=== PATIENT | male | born 1945 | race Caucasian/White ===

== ENCOUNTER → 2022-02-19 10:16 | Outpatient (CLI) | payer MEDICARE, OTHER, SELFPAY ==
[2022-02-19 11:12] LABS: COVID19 -Nasal RAPID Negative (Negative)
== END ==
PROVIDERS: PCP Nurse Practitioner Family; Referring Provider Orthopaedic Surgery Orthopaedic Surgery of the Spine; Visit Provider Orthopaedic Surgery Orthopaedic Surgery of the Spine
DX: Z20.822 Contact with and (suspected) exposure to COVID-19 (principal); Z11.59 Encounter for screening for other viral diseases
CPT/HCPCS: 87635; C9803

== ENCOUNTER 2022-02-21 06:05 | Inpatient (IN) | payer MEDICARE, OTHER, SELFPAY ==
[2022-02-07 08:05] VITALS: BMI 29.2
[2022-02-21] VITALS (13 sets, daily range): BP systolic 101–146; BP diastolic 57–76; PULSE 85–106; RESP 13–20; TEMP 36.3–36.6; O2SAT 92–98; BMI 29.2
--- NOTE | 2022-02-21 | DI.RAD.S_ITS ---
PROCEDURE: XR LUMBAR SPINE 2-3V INDICATIONS: L4-5 L5-S1 TLIF TECHNIQUE: 2 spot fluoroscopic intraoperative images of the lower lumbar spine were acquired. COMPARISON: [facility], CT, CT LUMBAR SPINE WITHOUT CONTRAST, 02/14/2022, 7:21. FINDINGS: Spot fluoroscopic intraoperative images demonstrate posterior fusion changes at the L4 through S1 levels with pedicle screws, interbody rods, and disc spacers. Left sacroiliac fixation hardware is partially imaged. IMPRESSION: Postsurgical changes from posterior fusion at L4 through S1. Dictated by: Long Johnson M.D. on 02/21/2022 at 13:06 Approved by: Long Johnson M.D. on 02/21/2022 at 13:07
[2022-02-21] MEDS: LACTATED RINGERS 1,000 ML 100 ML IV ×2 (07:17→09:50)
--- NOTE | 2022-02-21 07:42 | PM.PREOP ---
Pre-operative Note COVID-19 COVID-19 status: Negative Result date/Date tested (Pos, Neg/Pending): 02/20/22 Criteria for continued procedure: Expected advancement of disease process, Possibility delay results in more complex future surgery or treatment, Increased loss of function, Continuing or worsening of significant or severe pain, Deterioration of the patient's condition or overall health and Delay expected to result in less-positive ultimate med/surg outcome Interval Note History & Physical reviewed/Exam performed by Physician: Yes Changes to H&P: No H&P completed within 30 days and has changed as indicated here:: HISTORY ITEM ONSET Anesthesia No complications, reactions Diverticulosis Enlarged prostate Fusion of joint Sciatic joint fusion left Hearing impaired Bilateral hearing aids HTN (hypertension) Kidney stone Passed without surgical intervention Rosacea SCC (squamous cell carcinoma) Removed from forehead Spinal stenosis of lumbar region HISTORY ITEM ONSET H/O vasectomy History of arthroscopy of right shoulder Bone spurs Hx of appendectomy Hx of arthroscopy of left knee Meniscus repair Hx of bilateral cataract extraction Hx of hernia repair Hx of repair of left rotator cuff Hx of tonsillectomy
[2022-02-21] MEDS: CEFAZOLIN 2 GM/20 ML SYRINGE IV ×2 (08:11→15:39)
--- NOTE | 2022-02-21 08:39 | SUR.OPER ---
Addendum entered by Marybeth Low R.N. 02/21/22 09:04: Patients glasses placed in patient labeled glass case and placed into his belongings bag in pre-op area. Patient states he left his hearing aids at home and ears better out of his right ear. Original Note: Prone on spine table, head in foam head support, padded chest and pelvic supports, gel pad at knees, lower legs supported by pillows; nipples, genitalia and toes free of pressure, arms secured on foam padded arm boards at <90 degrees abduction. Tape over blanket at thigh secured to table. Gel pad placed between heels.
[2022-02-21] MEDS: BUPIVACAINE 0.5% W/ EPI (PF) 30 ML VIAL INJ (08:45)
[2022-02-21] MEDS: BUPIVACAINE LIPOSOME 266 MG/20 ML VIAL INJ (11:10)
--- NOTE | 2022-02-21 11:17 | SUR.OPER ---
At 1110, Dr. Hebert aware urine in urinary catheter tubing/bag slightly cloudy. There was clear yellow urine with insertion.
--- NOTE | 2022-02-21 11:40 | PM.OP.1 ---
Operative Date/Time/Diagnoses Date of procedure: 02/21/22 Time of procedure: 07:45 Pre-op diagnosis: 1. L4-5, L5-S1 spinal stenosis 2. Lumbar spondylosis with radiculopathy Post-op diagnosis: same Procedure & Clinicians Procedure: 1. L4-5, L5-S1 Postero-lateral and posterior interbody fusion 2. L4-5, L5-S1 interbody cage placement. 3. L4-5, L5-S1 decompressive laminectomy with bilateral facetecomies 4. L4-5, L5-S1 Posterior segmental instrumentation 5. [place] of bone marrow from iliac crest 6. Utilization of microsurgical technique and operating microscope 7. Utilization of Robotic navigation Same procedure as scheduled: Yes Indications: Patient has been having chronic back pain and worsening lumbar radiculopathy. Patient failed multiple conservative management with worsening pain weakness and numbness in her lower extremity. Patient has been having difficulty performing activity of daily living. After discussing risks benefits of treatment options, patient elected proceed with surgery. Surgeon: Surjit Hebert Talent Program Manager: Thomas Cleaning Click Yes if Unassisted: No Anesthesia Type: General Operative Notes Closure Type: primary Specimen(s): none sent Prosthetic devices, grafts, tissues, transplants, or devices: Globus CREO MIS screws, Rise cages Applied: catheter Estimated Blood Loss (mL): 100 Blood products transfused: none Procedure in detail: Patient was seen in the preoperative area. Risks and benefits of the surgery was discussed with the patient. Informed consent was obtained from the patient and placed in the chart. Surgical site was marked. Patient was taken to the operative room. General anesthesia was administered. Prophylactic antibiotic was given to the patient less than 30 min before the incision was made. Patient was placed into a prone position on the Jesus table. Patient's back was then prepped and draped in the sterile fashion. Time-out was performed at this time. After patient was prepped and draped, patient's PSIS was palpated and marked bilaterally. Small 1 cm incision was made over the PSIS for placement of the reference probes. Two trocar was placed into the PSIS 1 on each side. The reference probe was attached to the trocar of the reference apparatus. At this time the C-arm imaging was used to confirm AP and lateral of L4-L5, L5-S1 vertebrae and merged the C-arm imaging using the Eventdoo robotic navigation system with the CT of the lumbar spine. After successful merging was completed and confirmed, skin marker was used to hernesto out the skin incision using the Eventdoo robotic arm. Bilateral incision was made at this time. Pre templated trajectory was used and guided using the Eventdoo robotic navigation system for bilateral L4, L5, S1 pedicle screw placement. This was done by using the robotic arm to guide the high-speed bur to make a cortical entry point. Next a drill was placed also using the robotic arm and guided using the navigation system drilling partially through bilateral L4, L5 and S1 pedicles. Next L4, L5, S1 pedicle screws it was pre templated and measured was placed onto the power helper/driver and inserted into the pedicles bilaterally. After all 6 screws were placed C-arm imaging was taken of both AP and lateral to confirm the placement. Excellent placement of the screws were confirmed and a matched precisely with the pre planned screw placement using the navigation system. MARs retractor was inserted using [employer] Kidney Stone Managementivation guidence. Globus MARS retractors was placed inside the incision and docked onto the L4 and L5 lamina. Using microsurgical technique and operating microscope, a L4, L5 laminectomy and L4-5, L5-S1 facetectomy was performed using a Kerrison rongeur. Patient was found have severe lateral recess and neural foramen stenosis which was fully decompressed after the laminectomy facetectomy. More than 75% of the facets were removed during the process of decompression rendering L4-5, L5-S1 level grossly unstable and required a fusion procedure at the same time. The disc space at L4-5, L5-S1 was identified, and a total diskectomy was performed at L4-5, L5-S1 level. The endplates were decorticated using a rasp and shaver. The total diskectomy and decortication was performed at L4-5, L5-S1 level in order to to accomplish a L4-5, L5-S1 fusion. The local bone from the laminectomy and facetectomy was saved for local bone grafting. After the total diskectomy and decortication was completed, Trifecta bone graft material was combined with local bone that was harvested earlier. At this time, a separate skin is incision was made over the iliac crest. A Jamshidi needle was inserted into the iliac crest through a separate skin incision. 5 cc of bone marrow aspiration was obtained through the separate skin incision using a Jamshidi needle from the iliac crest. The bone marrow aspiration was combined with local bone and the Trifecta bone grafting material. The bone grafting material was placed into the L4-5, L5-S1 interbody space along with a expandable cage. The cage was expanded to its maximum height using the torque limiting screwdriver. The disc preparation as well as the cage insertion were also performed under navigation guidance. After the cage was placed, AP and lateral C-arm imaging was taken to confirm placement of the cage and excellent position was confirmed. Globus MARS retractor was inserted and docked onto the L4-5, L5-S1 posterolateral gutter on the right side. Using the power drill, posterior-lateral decortication was performed at L4-5, L5-S1 level until bleeding cortical bone was identified. The remaining bone grafting material was placed into the L4-5, L5-S1 posterior lateral gutter he order to accomplish posterolateral fusion at the L4-5, L5-S1 level. At this time the tulips were attached to the L4, L5, S1 pedicle screw shanks. After measuring the length of the rods, they were inserted into the tulips of the pedicle screws and locked in place using locking caps and torque limiting screwdriver bilaterally. Total 6 caps and 2 titanium rods was used in order to complete the posterior instrumentation construct. After all the hardware was placed, and confirmed with AP and lateral C-arm imaging, the wound was then irrigated with sterile normal saline and packed with Ray-Jose R gauze for 3 min to accomplish hemostasis. After the gauze was removed the deep fascia was closed with #1 Vicryl suture. The subcutaneous layer was closed with 2-0 Vicryl. The skin was closed with skin karri. Patient tolerated the procedure well. There were no complications. Neuro monitoring system was used to monitor patient's neurologic status throughout entire procedure. There was no disturbance of the neural monitoring signals throughout the case. Complications: none Post-operative Condition: stable Disposition: PACU Plan for aftercare: Admit to inpatient hospital
[2022-02-21] MEDS: OXYCODONE/ACETAMINOPHEN 5/325 TABLET 1 TAB PO ×2 (11:44→12:16)
--- NOTE | 2022-02-21 12:08 | SUR.PHASEI ---
Urine showed to nicanor Guzman. No order given. Patient stable, awake, oriented, pleasant, tolerating PO intake well.
[2022-02-21] MEDS: SODIUM CHLORIDE 0.9% 1,000 ML 100 ML IV (12:45)
--- NOTE | 2022-02-21 14:10 | PT.IIE ---
Current Diagnoses Other spondylosis with radiculopathy, lumbar region (02/21/22) Spinal stenosis, lumbar region without neurogenic claudication (02/21/22) Surgery Performed Operation Date: 02/21/22 07:45 Actual Procedures p L4-5, L5-S1 TLIF w. posterior instrumentation- Robot - Surjit Hebert MD Surgical History (Last Reviewed 02/21/22 @ 06:53 by Dorothea Russ, RN) H/O vasectomy History of arthroscopy of right shoulder Hx of appendectomy Hx of arthroscopy of left knee Hx of bilateral cataract extraction Hx of hernia repair Hx of repair of left rotator cuff Hx of tonsillectomy Medical History (Last Reviewed 02/21/22 @ 06:53 by Dorothea Russ, RN) Anesthesia Diverticulosis Enlarged prostate Fusion of joint Hearing impaired HTN (hypertension) Kidney stone Rosacea SCC (squamous cell carcinoma) Spinal stenosis of lumbar region Physical Therapy Inpatient Evaluation/Re-Eval M1 PT/OT-IP Prior Functional Status Start: 02/21/22 15:35 Freq: NEEDED Status: Active Protocol: Document 02/21/22 14:10 AB (Rec: 02/21/22 15:56 AB [email or web address]) Medical Review Prior Functional Status Medical History Reviewed Yes Communication able to make needs known Mobility and Gait pt stated that he is independent with all mobilities and ambulation without Ad but occasionally uses a SPC for outdoor mobility Social History Household Members spouse Living Arrangements House Number of Floors (Floors) Two Floors Number of Stairs To Enter/Railing? 4 steps with L rail ascending to get into the house has 3 steps L rail to get to bedroom level Home Environment High Toilet,Walk in Shower, Built-In Shower Seat Home Equipment Front Wheel Walker,Straight Cane Additional Social History Comment pt has R side rail on the bed M2 PT-IP Current Condition Start: 02/21/22 15:35 Freq: NEEDED Status: Active Protocol: Document 02/21/22 14:10 AB (Rec: 02/21/22 15:56 AB [email or web address]) Physical Therapy Current Condition Current Condition Evaluation Date 02/21/22 Treatment Diagnosis s/p L4-5, L5S1 TLIF; difficulty in walking Onset Date 02/21/22 M3 PT-IP Subjective Start: 02/21/22 15:35 Freq: NEEDED Status: Active Protocol: Document 02/21/22 14:10 AB (Rec: 02/21/22 15:56 AB [email or web address]) Subjective Physical Therapy Visit Type Type Initial Evaluation Visit Start Time 14:10 Visit Stop Time 14:51 Total Visit Minutes 41 Number of REEL MAN Visits 0 Physical Therapy Visit Comments Patient Comments agreeable to do PT M4 PT-IP Mobility and Gait Start: 02/21/22 15:35 Freq: NEEDED Status: Active Protocol: Document 02/21/22 14:10 AB (Rec: 02/21/22 15:56 AB [email or web address]) PT-Bed Mobility Assessment Rolling Type of Rolling Log Rolling Level of Assist Minimal Assistance Supine to Sit Supine to Sit Minimal Assistance Sit to Supine Sit to Supine Minimal Assistance Scooting Scooting to Edge of Bed Standby Assistance PT-Transfer Assessment Sit to and From Stand Sit to and from Stand Contact Guard Assistance Equipment Transfer Assistive Device Gait Belt,Front Wheeled Walker Orthotic/Prosthetic Devices or Brace: No Transfers Transfer Destination Chair Transfer Technique ambulated Transfer Ability Level of Assist Contact Guard Assistance,1 Person Assistance,Use of Upper Extremities Comments Mobility Comments pt supine in bed. spouse in room with pt. educated pt and spouse regarding back precautions and log roll bed mobility. BP in supine 128/69 . completed log roll supine to sit min A and max cues. able to sit on EOB SBA. completed sit to stand CGA and ambulate din room using FWW CGA ~ 60 ft . pt requested to sit up on chair. positioned on chair. call light and table placed within reach. caregiver training set up at 9am tomorrow with spouse Gait Assessment Gait Gait Assistance Required: Contact Guard Assist Distance (Feet) 60 Able to Maintain Weight Bearing Status Yes During Gait Assistive Devices Assistive Device Gait Belt,Front Wheeled Walker Orthotic/Prosthetic Devices or Brace: No Gait Deviations General Gait Pattern Decreased Stride Length, Decreased Feet Clearance Factors Limiting Gait Function Factors Limiting Gait Function Decreased Activity Tolerance, Decreased Strength,Limited Range of Motion,Pain,Poor Balance PT-Balance Assessment Sitting Balance and Reactions Static Sitting Balance Ability Normal Dynamic Sitting Balance Ability Good Standing Balance and Reactions Static Standing Balance Ability Fair Dynamic Standing Balance Ability Fair Device Used FWW M5 PT-IP Objective Assessments Start: 02/21/22 15:35 Freq: NEEDED Status: Active Protocol: Document 02/21/22 14:10 AB (Rec: 02/21/22 15:56 AB [email or web address]) Orientation Orientation/Cognition Level of Alertness Alert Orientation Name,Place,Situation Language Function Ability No Deficits Noted Safety Awareness Decreased Safety Awareness Memory Description Short Term Impaired Gross Range of Motion Lower Extremity ROM Assessment Within Functional Limits Strength Lower Extremity Strength Hip 4-/5 Knee 4-/5 Sensation Assessment Sensation Gross Sensation WNL Muscle Tone Muscle Tone WNL Yes M6 PT-IP Treatment Start: 02/21/22 15:35 Freq: NEEDED Status: Active Protocol: Document 02/21/22 14:10 AB (Rec: 02/21/22 15:56 [email or web address]) Physical Therapy Treatment Education Education Provided Precautions,Weight Bearing Status,Post-Op Packet,Safety M7 PT-IP Assessment and Plan Start: 02/21/22 15:35 Freq: NEEDED Status: Active Protocol: Document 02/21/22 14:10 AB (Rec: 02/21/22 15:56 [email or web address]) PT Summary Assessment and Plan Potential Rehabilitation Potential Good Status of Condition at Evaluation Stable Summary Impairments Pain,ROM,Strength,Balance, Coordination,Sensation,Tone, Cognition,Bed Mobility, Transfers,Gait,Activity Tolerance Assessment Summary pt requiring min A with bed mobility and cues, CGA with transfers and ambulation using fWW. caregiver training set up for tomorrow at 9 am. pt also needs to complete stair climbing training prior to d/c . will continue to assess progress. Goals Bed Mobility Goal Independent Transfer Goal Independent,Front Wheeled Walker Gait Goal Independent,Front Wheel Walker Gait Distance 200 Other Goals up/down 4 steps L rail SBA Days to Meet Goals 5 Frequency of Treatment Frequency Of Treatment Twice a Day Treatment Plan Physical Therapy Treatment Plan Bed Mobility Training,Transfer Training,Gait Training, Therapeutic Exercise,Balance Retraining,Post Op Education, Discharge Planning,Hot or Cold Pack,Neuromuscular Re-ed, Coordination Retraining,Manual Therapy Precautions Lumbar Precautions Log Roll,No Twisting,Limit Bending,Lifting Restriction of 10 lbs,Gait Belt above Incisional Area Recommendations To Nursing Amount of Assist Needed 1 Person Assist Discharge Recommendations PT Discharge Recommendations Home with Assistance Transportation Needs at Discharge Private Vehicle
[2022-02-21] MEDS: OXYCODONE IR 5 MG TABLET 10 MG PO ×2 (14:39→21:09)
[2022-02-21] MEDS: HYDROMORPHONE 0.5 MG INJ IV (16:43)
--- NOTE | 2022-02-21 18:20 | PC.NURSE ---
Pt arrived to the unit around from PACU; Pt had TLIF done. Pt is AxOx4, needs 1 person assistance with FWW. Pt c/o back pain and recieved PO Oxy 10 x1 with good effect. Pt also recieved PRN IV Dilaudid 0.5mg once with good effect. Pt is eating well and drinking well. Pt worked with PT today and he did well. Dressing on his back changed once after he worked with PT. It was saturated well with blood. Pt is getting IV cont fluid and 1 dose of IV Cefazolin. No other skin issues identified. No other changes. Continue monitor.
[2022-02-21] MEDS: DOCUSATE 100 MG CAPSULE PO (20:10)
[2022-02-21] MEDS: SENNOSIDES 8.6 MG TABLET 17.2 MG PO (20:10)
[2022-02-22] VITALS: BP 126/68; PULSE 84; RESP 16; TEMP 36.7; O2SAT 96
[2022-02-22] MEDS: CEFAZOLIN 2 GM/20 ML SYRINGE IV (00:47)
[2022-02-22] MEDS: OXYCODONE IR 5 MG TABLET 10 MG PO ×3 (03:45→13:54)
[2022-02-22 04:00] VITALS: BP 120/63; PULSE 73; RESP 17; TEMP 36.7; O2SAT 97
[2022-02-22 06:47] LABS: Hematocrit 37.1 % (41-53); Hemoglobin 12.9 g/dL (13.5-17.5)
--- NOTE | 2022-02-22 07:43 | P.DS_ITS ---
History of Present Illness History of Present Illness Date Patient Seen: 02/22/22 Time Patient Seen: 07:43 Chief complaint: back pain Narrative: Pain is currently well controlled with pain meds. Denies fever or chills. No nausea vomiting. Patient has is home and available to assist him. Otherwise complaints. Discharge Providers Provider Date of admission: 02/21/22 06:05 Discharge Date: 02/22/22 Primary care physician: MATTEO Cordova Consults: 02/21/22 12:21 Consult to Occupational Therapy Evaluate & Treat Comment: Physician Instructions: Evaluate and treat Consult to Physical Therapy Evaluate & Treat Comment: Physician Instructions: Evaluate and Treat Discharge provider: Thomas Cleaning PA-C Summary Hospital Course Discharge Diagnosis: 1. L4-5, L5-S1 spinal stenosis 2. Lumbar spondylosis with radiculopathy Hospital Course: 1. L4-5, L5-S1 Postero-lateral and posterior interbody fusion 2. L4-5, L5-S1 interbody cage placement. 3. L4-5, L5-S1 decompressive laminectomy with bilateral facetecomies 4. L4-5, L5-S1 Posterior segmental instrumentation 5. [place] of bone marrow from iliac crest 6. Utilization of microsurgical technique and operating microscope 7. Utilization of Robotic navigation Same procedure as scheduled: Yes Indications: Patient has been having chronic back pain and worsening lumbar radiculopathy. Patient failed multiple conservative management with worsening pain weakness and numbness in her lower extremity.? Patient has been having difficulty performing activity of daily living.? After discussing risks benefits of treatment options, patient elected proceed with surgery. Surgeon: Surjit Hebert Director Of Premium Seat Sales: Thomas Cleaning Click Yes if Unassisted: No Anesthesia Type: General Operative Notes Closure Type: primary Specimen(s): none sent Prosthetic devices, grafts, tissues, transplants, or devices: Globus CREO MIS screws, Rise cages Applied: catheter Estimated Blood Loss (mL): 100 Blood products transfused: none Patient admitted to the hospital the above-mentioned procedure. Patient taken operating room on 02/21/2022. Patient underwent above-mentioned procedure. Patient back in his room recovering well and is stable condition. Discharge Kraft catheter. Mobilize with physical therapy. Discharge home after physical therapy if safe for home environment. Exam Vital Signs (past 8 hours): - 02/22/22 00:00 02/22/22 04:00 Temperature 98.1 F 98.1 F Pulse Rate 84 73 Respiratory Rate 16 17 Blood Pressure 126/68 120/63 Pulse Oximetry 96 97 Oxygen Flow Rate 0 0 Oxygen Delivery Method Room Air Oxygen Flow Rate 0 Narrative Exam Narrative: Pleasant 76-year-old male resting comfortably in bed in no apparent distress. Dressing Clean, dry, intact.. Motor functions intact bilateral lower extremities. Sensation grossly intact to light touch bilateral lower extremities. Const General: cooperative and comfortable Orientation: alert Resp Effort & Inspection: normal respiratory effort and able to speak in complete s entences Objective Labs Result Diagrams: 02/22/22 06:40 Labs: Laboratory Results - last 24 hr 02/22/22 06:40 Hgb 12.9 L Hct 37.1 L PFSH Medical History Anesthesia Diverticulosis Enlarged prostate Fusion of joint Hearing impaired HTN (hypertension) Kidney stone Rosacea SCC (squamous cell carcinoma) Spinal stenosis of lumbar region Surgical History H/O vasectomy History of arthroscopy of right shoulder Hx of appendectomy Hx of arthroscopy of left knee Hx of bilateral cataract extraction Hx of hernia repair Hx of repair of left rotator cuff Hx of tonsillectomy Social History household members: spouse Smoking Status: Never smoker alcohol intake: current Discharge Assessment & Plan Assessment and Plan Assessment: Patient progressing as expected Plan of Treatment: Mobilize with physical therapy, limit bending, lifting, twisting Multimodal pain management Discharge home today after physical therapy if safe for home environment. Discharge Plan Discharge Plan Patient Disposition: Home Discharge orders & Medications Prescriptions: New acetaminophen 325 mg Tablet 650 mg PO Q6HR PRN (Reason: Pain, Mild (1-3)) Qty: 60 0RF docusate sodium 100 mg Capsule 100 mg PO BID Qty: 60 0RF oxycodone 5 mg Tablet 10 mg PO Q3HR PRN (Reason: Pain, Severe (7-10)) Qty: 60 0RF Continued amlodipine 5 mg Tablet 5 mg PO DAILY quinapril 20 mg Tablet 20 mg PO DAILY alfuzosin 10 mg Tablet Extended Release 24 Hr 10 mg PO QPM Rx Instructions: administer after the same meal each day doxycycline hyclate 50 mg Tablet 50 mg PO DAILY Discontinued acetaminophen 500 mg Tablet 1,500 mg PO DAILY PRN (Reason: Pain) ibuprofen 200 mg Tablet 600 mg PO DAILY PRN (Reason: Pain) Follow up/Referrals: Surjit Hebert MD [Physician] - (10-14 days for postoperative) Jose Alejandro Hernandez, WATER METER INSTALLER [Primary Care Provider] - Diet/Activity/Treatments Diet: Diet as Tolerated Other treatments: Dressing/Wound care: -Keep dressing in place until postoperative follow-up office visit. -Okay to shower. Keep wound out of direct water stream. Can use PressNSeal plastic wrap to protect from shower stream. No soaking or submerging until all the scabs fall off (approximately 6 weeks). -Please call the office if dressing becomes wet, soiled, or saturated. Activities: -Limit bending, lifting, twisting x6 weeks. No deep bending (more than 90 degrees) or twisting at the waist. No lifting > 20 pounds. -Walk frequently. -Weight-bearing as tolerated. Use front wheeled walker, and progress to cane when safe. -Continue with home exercises as directed by your physical therapist. -Ice your incision as needed for pain/inflammation/swelling. Protect your skin with a folded pillowcase. -Incentive Spirometer (breathing device from hospital): 5-10xs every hour while awake for the first 1-2 weeks. Follow-up: -Follow-up with your surgeon or PA in the office in 10-14 days after surgery. -Follow-up with your surgeon 6 weeks postoperatively. Call the office if you have chest pain, shortness of breath, significant swelling that will not resolve with elevating, fever over 101?, significantly worsening pain, or are concerned you might need to go to the Emergency Room. [facility]: [phone] Skin/Wound/Dressing Care Report to your healthcare provider any signs of infection, such as:: chills, fever, night sweats, unusual drainage and unusual redness Visit Report/Discharge Packet Instructions: DI for Prescription Opioid Use, DI for Transforaminal Lumbar Interbody Fusion Stand Alone Forms: Surgery Discharge Discharge Data Primary Care Provider: Jose Alejandro Hernandez Quality VTE Deep Vein Thrombosis/Pulmonary Embolism Present on Admission: No
[2022-02-22 08:00] VITALS: BP 124/69; PULSE 66; RESP 16; TEMP 36.9; O2SAT 96
[2022-02-22 08:53] VITALS: BP 124/69; PULSE 66
[2022-02-22] MEDS: AMLODIPINE 5 MG TABLET PO (08:53)
[2022-02-22] MEDS: DOCUSATE 100 MG CAPSULE PO (08:53)
[2022-02-22] MEDS: lisinopriL 20 MG TABLET PO (08:53)
[2022-02-22] MEDS: DOXYCYCLINE HYCLATE 100 MG TABLET 50 MG PO (08:53)
--- NOTE | 2022-02-22 09:22 | PT.IPTN ---
Current Diagnoses Other spondylosis with radiculopathy, lumbar region (02/21/22) Spinal stenosis, lumbar region without neurogenic claudication (02/21/22) Surgery Performed Operation Date: 02/21/22 07:45 Actual Procedures p L4-5, L5-S1 TLIF w. posterior instrumentation- Robot - Surjit Hebert MD Physical Therapy Treatment Note M2 PT-IP Current Condition Start: 02/21/22 15:35 Freq: NEEDED Status: Active Protocol: Document 02/21/22 14:10 AB (Rec: 02/21/22 15:56 AB [id number]) Physical Therapy Current Condition Current Condition Evaluation Date 02/21/22 Treatment Diagnosis s/p L4-5, L5S1 TLIF; difficulty in walking Onset Date 02/21/22 M3 PT-IP Subjective Start: 02/21/22 15:35 Freq: NEEDED Status: Active Protocol: Document 02/22/22 08:58 KS (Rec: 02/22/22 12:28 KS [id number]) Subjective Physical Therapy Visit Type Type Treatment Note Visit Start Time 08:58 Visit Stop Time 09:22 Total Visit Minutes 24 Number of INCIDENT RESPONSE COORDINATOR Visits 1 Physical Therapy Visit Comments Patient Comments agreeable to do PT M4 PT-IP Mobility and Gait Start: 02/21/22 15:35 Freq: NEEDED Status: Active Protocol: Document 02/22/22 08:58 KS (Rec: 02/22/22 12:28 KS [id number]) PT-Bed Mobility Assessment Rolling Type of Rolling Log Rolling,Roll to Right Level of Assist Standby Assistance Supine to Sit Supine to Sit Contact Guard Assistance Scooting Scooting to Edge of Bed Standby Assistance PT-Transfer Assessment Sit to and From Stand Sit to and from Stand Contact Guard Assistance Equipment Transfer Assistive Device Gait Belt,Front Wheeled Walker Orthotic/Prosthetic Devices or Brace: No Transfers Transfer Destination Chair,Wheelchair Transfer Technique ambulated Transfer Ability Level of Assist Contact Guard Assistance,1 Person Assistance,Use of Upper Extremities Comments Mobility Comments Pt in bed upon arrival and agreeable to working w/ PT. Pts present for caregiver training. Pt able to recall 3 /3 spinal precautions and perform bed mobility SBA to CGA. Demonstrated gait belt application to pts . Pt sit<>stand w/ FWW CGA and ambulated ~20 ft to w/c in hallway. W/c transport to stairs for energy conservation . Pt ascended/descended 3 steps w/ L rail x2 first set w / this INCIDENT RESPONSE COORDINATOR and second set w/ providing CGA and cues. He ambulated ~150 ft back to room w/ FWW CGA. Reviewed at home safety. Pt left in chair w/ all needs in reach. Gait Assessment Gait Gait Assistance Required: Contact Guard Assist Distance (Feet) 120 Able to Maintain Weight Bearing Status Yes During Gait Assistive Devices Assistive Device Gait Belt,Front Wheeled Walker Orthotic/Prosthetic Devices or Brace: No Gait Deviations General Gait Pattern Decreased Stride Length, Decreased Feet Clearance Factors Limiting Gait Function Factors Limiting Gait Function Decreased Activity Tolerance, Decreased Strength,Limited Range of Motion,Pain,Poor Balance Comments Gait Comments Good use of FWW, no LOB Stair Climbing Assessment Evaluation Level of Assist On Stairs Contact Guard Assistance,1 Person Assistance Devices Stair Climbing Assistive Devices Left Railing Technique/Endurance Stair Climbing Direction Ascend and Descend Stair Climbing Technique Step to Step Number of Steps Climbed 3 Stair Climbing Set # Repetitions (reps) 2 Comments Stair Climbing Comments Pt ascended/descended 3 steps w/ L rail x2 and CGA and was able to provide assist. Pt and feel comfortable to complete stairs at home. PT-Balance Assessment Sitting Balance and Reactions Static Sitting Balance Ability Normal Dynamic Sitting Balance Ability Good Standing Balance and Reactions Static Standing Balance Ability Fair Dynamic Standing Balance Ability Fair Device Used FWW M5 PT-IP Objective Assessments Start: 02/21/22 15:35 Freq: NEEDED Status: Active Protocol: Document 02/21/22 14:10 AB (Rec: 02/21/22 15:56 AB [id number]) Orientation Orientation/Cognition Level of Alertness Alert Orientation Name,Place,Situation Language Function Ability No Deficits Noted Safety Awareness Decreased Safety Awareness Memory Description Short Term Impaired Gross Range of Motion Lower Extremity ROM Assessment Within Functional Limits Strength Lower Extremity Strength Hip 4-/5 Knee 4-/5 Sensation Assessment Sensation Gross Sensation WNL Muscle Tone Muscle Tone WNL Yes M6 PT-IP Treatment Start: 02/21/22 15:35 Freq: NEEDED Status: Active Protocol: Document 02/22/22 08:58 KS (Rec: 02/22/22 12:28 KS [id number]) Physical Therapy Treatment Education Education Provided Precautions,Weight Bearing Status,Post-Op Packet,Safety M7 PT-IP Assessment and Plan Start: 02/21/22 15:35 Freq: NEEDED Status: Active Protocol: Document 02/22/22 08:58 KS (Rec: 02/22/22 12:28 KS [id number]) PT Summary Assessment and Plan Potential Rehabilitation Potential Good Status of Condition at Evaluation Stable Summary Impairments Pain,ROM,Strength,Balance, Coordination,Sensation,Tone, Cognition,Bed Mobility, Transfers,Gait,Activity Tolerance Assessment Summary Completed caregiver training w / pts who was able to provide assist in all areas necessary. Pt had good adherence and awareness of spinal precautions and ambulated ~120 ft w/ FWW and ascended/descended 6 total steps CGA. He will benefit from outpatient rehab when appropriate to improve spinal mobility and core stability. Goals Bed Mobility Goal Independent Transfer Goal Independent,Front Wheeled Walker Gait Goal Independent,Front Wheel Walker Gait Distance 200 Other Goals up/down 4 steps L rail SBA Days to Meet Goals 5 Frequency of Treatment Frequency Of Treatment Twice a Day Treatment Plan Physical Therapy Treatment Plan Bed Mobility Training,Transfer Training,Gait Training, Therapeutic Exercise,Balance Retraining,Post Op Education, Discharge Planning,Hot or Cold Pack,Neuromuscular Re-ed, Coordination Retraining,Manual Therapy Precautions Lumbar Precautions Log Roll,No Twisting,Limit Bending,Lifting Restriction of 10 lbs,Gait Belt above Incisional Area Recommendations To Nursing Amount of Assist Needed 1 Person Assist Discharge Recommendations PT Discharge Recommendations Home with Assistance Transportation Needs at Discharge Private Vehicle
--- NOTE | 2022-02-22 09:27 | CM.DANOTE ---
DCP: Case received, EMR reviewed and met with patient. Introduced self and role. Was able to obtain information regarding patient's baseline activity status prior to his surgery. DCP assessment completed with information currently available. Patient is a 76 year old male who admitted yesterday morning to the care of the orthopedic team. PCP: Dr. Hernandez. Payer: confirmed: Medicare/[employer]. Patient came to the hospital for a surgical procedure. Patient had L4-5, L5-S1 postero-lateral and posterior interbody fusion. Patient has history of spinal stenosis. Met with patient in his room. He is alert and oriented. He was sitting up in bed. He did work with [facility]. yesterday. Confirmed that patient resides on [address] with his spouse, Wendi. He does drive, stated, he usually has to drive his , since she has a bad knee. He did confirm that spouse can give patient some assistance if needed, when he goes home. At his baseline, he does have a cane for home use, and does have some stairs in the home. P: Patient is to be discharged home today, he will work again with P.T. Patricai Mcdermott RN/Chiropractic Doctor Discharge Planning/Care Management CM Discharge Assessment Start: 02/22/22 09:26 Freq: Status: Active Protocol: Document 02/22/22 09:26 (Rec: 02/22/22 09:27 [id number]) Discharge Planning Assessment Assigned Long Term Care Social Worker Patricia Mcdermott RN/Chiropractic Doctor Advance Directives? No History Provided By Patient,Medical Record Prior Living Arrangements House Household Members spouse Type of transporation used prior to Drives own vehicle admit Independent with ADL's Yes Is patient alert and oriented? Yes DME Already Rented / Owned Cane Barriers to Discharge No Discharge Plan Home Transportation Arrangement Spouse Referrals Initiated None needed Whiteboard Updated in Patient Room with Yes name and ext. # of Long Term Care Social Worker Review Status In Process Next Review Type Continued Stay Review Pre-Anesthesia Assessment Start: 02/07/22 08:05 Freq: Status: Active Protocol: Document 02/07/22 08:05 CAB (Rec: 02/07/22 09:26 CAB [id number]) Pre-Anesthesia Assessment Patient Information Reviewed Via Phone Assessment Assessment Completed With Patient Comment Labs/ECG done, surgeon has, not here, COVID screen @ Primary Care Provider Jose Alejandro Hernandez Seen Specialist in Last 12 Months Yes Specialist Seen Orthopedist,Urologist Primary Language Y[place]ut Sole Tier Required No Height 5 ft 11 in Weight 210 lb Body Mass Index (BMI) 29.2 Hearing Ability Hard of Hearing,Use of Hearing Aid Visual Assist Glasses Dentition Type Teeth, Natural Present,Teeth, Missing Barriers to Learning None Hx Anesthesia Reactions No Hx Family Anesthesia Reaction No Hx Malignant Hyperthermia No Hx Blood Transfusions No Anesthesia Review Requested No alcohol intake current alcohol intake frequency 0-2 drinks per day Smoking Status Never smoker Substance Use Type does not use Pain Present Pain Reported Musculoskeletal Symptoms Abnormal Gait,Back Pain, Difficulty Walking,Radiating Pain into Limb History of Falling (Recent or History of No ) Patient is completely paralyzed or No completely immobile Mental Status Oriented to own ability Is patient on oxygen? No Does patient have SANDOVAL/SOB No Hx Sleep Apnea No Currently Taking a Beta Nain No Can You Climb a Flight of Stairs Without Yes SOB Hx Chest Pain No Hx SOB No Hx Syncope or Dizziness No Anti-Coagulant Therapy No Has a Correspondence School Teacher No Cardiac Testing No Hx Pacemaker/ICD No Pacemaker Rep Required? No Diet Type At Home Regular dysphagia No Urinary Catheter Present No Hx Urinary Self Catheterization No Diabetes No Hx Drug Resistant Organism No Presence of External or Internal Medical Yes: Bilateral eye IOLs Devices Have you had any close contact with No someone diagnosed with COVID-19? Received a COVID vaccine? Yes: No boosters Marital Status Lives With spouse Prior Living Arrangements House Number of Floors (Floors) Two Floors Support System Spouse Does the Patient Have Assistance After Yes Surgery Patient Discharge Plan Description Return Home Comment Pt advised 1-2 night length of stay per surgeon Feels Safe in Current Environment Yes Been Physically Hurt or Threatened By a No Person in Current Environment Do you have thoughts of harming yourself None or others? Are you currently considering suicide? No Do you have a plan to hurt yourself or No Plan others? Do You Have Any Spiritual Beliefs That No May Affect Your HC Choices? Do You Have Any Cultural Practices That No May Affect Your HC Choices? Who Can We Speak to About Patient's Care Family, friends Identifying Code for Release of Patient Declines to issue Information Health Care Proxy/Next of Kin Wendi () Health Care Proxy Emergency Contact Name Wendi () Emergency Contact Advance Directives? No Power of Staff Pharmacist Hospital No PAC Instructions Durable medical equipment, Medications to take/avoid, Nasal antibiotic,No ETOH/ petroleum product on skin DOS, NPO,Post-op transportation,Pre -surgical wash,Sturdy shoes/ comfortable clothes,Do not bring valuables and remove jewelry
--- NOTE | 2022-02-22 09:30 | OT.IP.EVAL ---
Current Diagnoses Other spondylosis with radiculopathy, lumbar region (02/21/22) Spinal stenosis, lumbar region without neurogenic claudication (02/21/22) Surgery Performed Operation Date: 02/21/22 07:45 Actual Procedures p L4-5, L5-S1 TLIF w. posterior instrumentation- Robot - Surjit Hebert MD Past Medical History (Last Reviewed 02/22/22 @ 07:46 by Thomas Cleaning PA-C) Anesthesia Diverticulosis Enlarged prostate Fusion of joint Hearing impaired HTN (hypertension) Kidney stone Rosacea SCC (squamous cell carcinoma) Spinal stenosis of lumbar region Surgical History (Last Reviewed 02/22/22 @ 07:46 by Thomas Cleaning PA-C) H/O vasectomy History of arthroscopy of right shoulder Hx of appendectomy Hx of arthroscopy of left knee Hx of bilateral cataract extraction Hx of hernia repair Hx of repair of left rotator cuff Hx of tonsillectomy Occupational Therapy Inpatient Evaluation/Re-Eval M1 PT/OT-IP Prior Functional Status Start: 02/21/22 15:35 Freq: NEEDED Status: Active Protocol: Document 02/22/22 09:30 [facility] (Rec: 02/22/22 11:05 [facility] [id number]) Medical Review Prior Functional Status Medical History Reviewed Yes Communication able to make needs known Mobility and Gait pt stated that he is independent with all mobilities and ambulation without Ad but occasionally uses a SPC for outdoor mobility Activities of Daily Living and IADL's Pt states able to do ADL and IADL with pain. Social History Household Members spouse Living Arrangements House Number of Floors (Floors) Two Floors Number of Stairs To Enter/Railing? 4 steps with L rail ascending to get into the house has 3 steps L rail to get to bedroom level Home Environment High Toilet,Walk in Shower, Built-In Shower Seat Home Equipment Front Wheel Walker,Straight Cane Additional Social History Comment pt has R side rail on the bed M2 OT-IP Current Condition Start: 02/22/22 10:50 Freq: Status: Active Protocol: Document 02/22/22 09:30 [facility] (Rec: 02/22/22 11:05 [facility] [id number]) Occupational Therapy Current Condition Current Condition Evaluation Date 02/22/22 Treatment Diagnosis S/p L4-5, L5-S1 TLIF Diagnosis Onset Date 02/21/22 Post Operative Precautions Lumbar Precautions Log Roll,No Twisting,Limit Bending,Lifting Restriction of 10 lbs,Gait Belt above Incisional Area M3 OT- IP Subjective and Pain Start: 02/22/22 10:50 Freq: Status: Active Protocol: Document 02/22/22 09:30 [facility] (Rec: 02/22/22 11:05 [facility] [id number]) OT- Subjective Occupational Therapy Visit Type Type Initial Evaluation Visit Start Time 09:30 Visit Stop Time 09:47 Total Visit Minutes 17 Occupational Therapy Visit Comments Patient Comments Pt present for caregiver training. Patient/Caregiver Goals TO go home. OT Pain Assessment Pain When Pain Assessed At Rest Pain Present Pain Present Denied Pain M4 OT- IP ADL's Start: 02/22/22 10:50 Freq: Status: Active Protocol: Document 02/22/22 09:30 [facility] (Rec: 02/22/22 11:05 [facility] [id number]) OT [id number] Comments OT Self-Feeding Comments NOt at meal time. OT ADL-Grooming Comments OT Grooming Comments Not performed. OT ADL-Oral Care Comments Oral Care Comments Educated best to hinge at his hips or spit into a cup to best follow his back precautions. OT ADL-Dressing General Eval Upper Body Dressing Ability Moderate Assistance Lower Body Dressing Ability Maximum Assistance Comments OT Dressing Comments Pt getting his feet in the wrong holes of the underwear and needing assist. pt has a very supportive that will assist for all his needs at home. OT ADL-Toileting Comments OT Toileting Comments Educated to lean to the side or wipe while standing up in which pt was able to reach appropriately during practice. Suggested for pt to use a urinal at night therefore so not having to do steps at night. OT ADL-Bathing Comments OT Bathing Comments Pt states to shower at home. Pt's states will assist him. M5 OT- IP IADL's Start: 02/22/22 10:50 Freq: Status: Active Protocol: Document 02/22/22 09:30 [facility] (Rec: 02/22/22 11:05 [facility] [id number]) OT-Instrumental Activities of Daily Living Home Safety Awareness Awareness of Need for Assistance at Home Decreased Awareness Home Safety Comments Pt a bit impulsive and would be best for his to provide at least supervision for back precautions and assist as needed for ADL and mobility needs. M6 OT- IP Functional Cognition Start: 02/22/22 10:50 Freq: Status: Active Protocol: Document 02/22/22 09:30 [facility] (Rec: 02/22/22 11:05 [facility] [id number]) Cognitive Factors Limiting Selfcare Function Cognitive Ability Level of Alertness Alert Patient Orientation Name,Place,Situation Attention Span Ability Capable of Focused Attention, Capable of Sustained Attention Safety Awareness Decreased Ability to Apply Precautions,Underestimates Need for Assistance Cognitive Comments Cognitive Assessment Comments Pt a bit impulsive and needing cues to follow his back precautions. M7 OT- IP Mobility and Balance Start: 02/22/22 10:50 Freq: Status: Active Protocol: Document 02/22/22 09:30 [facility] (Rec: 02/22/22 11:05 [facility] [id number]) OT- Bed Mobility Assessment Supine to Sit Supine to Sit Assist Standby Assistance Sit to Supine Sit to Supine Assist Standby Assistance OT-Transfer Assessment Sit to and From Stand Sit to and from Stand Contact Guard Assistance Transfers Transfer Ability Standby Assistance,Contact Guard Assistance Technique Transfer Destination Bed,Chair Devices Transfer Assistive Devices Gait Belt,Front Wheeled Walker Comments Mobility Comments CGA to stand, reminded pt to have the FWW in front of him for safety as pt trying to stand without assist. Educated pt if sleeping on his side to have pillow between his knees and pillow for support in back on him. In addition a pillow for his arms to help keep his back in alignment if he ends on sleeping in sidelying. Pt states will try to sleep on his back for now. OT- Balance Assessment Sitting Balance and Reactions Static Sitting Balance Ability Normal Dynamic Sitting Balance Ability Good Standing Balance and Reactions Static Standing Balance Ability Fair Dynamic Standing Balance Ability Fair M8 OT- IP Objective Assessments Start: 02/22/22 10:50 Freq: Status: Active Protocol: Document 02/22/22 09:30 [facility] (Rec: 02/22/22 11:05 [facility] [id number]) OT-Muscle Tone Assessment Muscle Tone WNL Yes M9 OT- IP Assessment and Plan Start: 02/22/22 10:50 Freq: Status: Active Protocol: Document 02/22/22 09:30 [facility] (Rec: 02/22/22 11:05 [facility] [id number]) OT Summary Assessment and Plan Potential Rehabilitation Potential Good Analytic Complexity at Evaluation Low Summary OT Impairments Balance,Dressing,Toileting, Bathing,Toilet Transfers, Shower Transfers Progress Towards Goals Progressing Toward Goals Assessment Summary Pt low complexity and main barriers are step, a bit impulsive and needing cues to follow his back precautions. Pt has a supportive to be able to assist pt for all his needs. Goals Grooming Goal Independent Dressing Goal Minimal Assistance Toileting Goal Independent Bathing Goal Minimal Assistance Toilet Transfer Goal Independent Shower Transfer Goal Independent Days to Meet Goals 1 Frequency of Treatment Frequency Of Treatment Once a Day Treatment Plan OT Treatment Plan ADL Training,Functional Cognition Training,Functional Mobility,Patient/Family Education,Discharge Planning Discharge Recommendations OT Discharge Recommendations Home with Assistance Transportation Needs at Discharge Private Vehicle
== END 2022-02-22 14:00 | disposition home or self-care (01) | DRG 455 ==
PROVIDERS: Admitting Provider Orthopaedic Surgery Orthopaedic Surgery of the Spine; PCP Nurse Practitioner Family; Referring Provider Orthopaedic Surgery Orthopaedic Surgery of the Spine; Visit Provider Orthopaedic Surgery Orthopaedic Surgery of the Spine
PROC: 0SG00AJ Fusion of Lumbar Vertebral Joint with Interbody Fusion Device, Posterior Approach, Anterior Column, Open Approach (ICD-10-PCS; principal; 2022-02-21 07:45)
DX: M48.061 Spinal stenosis, lumbar region without neurogenic claudication (principal); M47.26 Other spondylosis with radiculopathy, lumbar region; M48.07 Spinal stenosis, lumbosacral region; I10 Essential (primary) hypertension; Z20.822 Contact with and (suspected) exposure to COVID-19
CPT/HCPCS: 36415; 72100; 76000; 82962; 85014; 85018; 87635; 97116; 97161; 97165; 97530; C9803; C1713; C1831; C9290; J0330; J0690; J1100; J1170; J2250; J2405; J2704; J3010

== ENCOUNTER → 2023-12-06 10:35 | Outpatient (CLI) | payer OTHER, SELFPAY ==
[2022-02-21 12:47] VITALS: BMI 29.2
[2023-12-06 13:04] LABS: Alanine Aminotransferase 23 IU/L (<50); Albumin 4.4 g/dL (3.5-5.0); Albumin Globulin Ratio 1.6 (1.0-2.8); Alkaline Phosphatase 74 U/L (38-126); Aspartate Aminotransferase 20 IU/L (17-59); BUN Creatinine Ratio 26.6 (6-22); Bilirubin Total 1.1 mg/dL (0.2-1.3); Blood Urea Nitrogen 21 mg/dL (9-20); Calcium 9.4 mg/dL (8.4-10.2); Carbon Dioxide 25 mmol/L (22-32); Chloride 109 mmol/L (98-107); Estimated Glomerular Filt Rate > 60 mL/min (>60); Globulin 2.7 g/dL (1.7-4.1); Glucose 146 mg/dL (80-110); HEMOLYSIS < 15 (0-50); Potassium 4.5 mmol/L (3.4-5.1); Sodium 139 mmol/L (137-145); Total Protein 7.1 g/dL (6.3-8.2)
[2023-12-06 13:21] LABS: Appearance Urine UA CLEAR; Bilirubin Urine UA NEGATIVE (NEGATIVE); Color Urine UA YELLOW; Glucose Urine UA NEGATIVE (Negative); Ketones Urine UA NEGATIVE (NEGATIVE); Leukocyte Esterase Urine UA NEGATIVE (NEGATIVE); Nitrite Urine UA NEGATIVE (Negative); Occult Blood Urine UA NEGATIVE (Negative); Protein Urine UA 1+ (Negative); Specific Gravity Urine UA 1.025 (1.000-1.035); Urobilinogen Urine UA 0.2 E.U./dL (0.2)
[2023-12-06 13:43] LABS: RBC Urine None Seen (0-5/HPF); Urine Volume 10mL (spun); WBC Urine 1-5/HPF (0-5/HPF)
[2023-12-06 13:44] LABS: Bacteria Urine None Seen; Culture Indicated Urine Cult Not Indicated; Squamous Epithelial Cell Urine None Seen (0-5/HPF)
== END ==
PROVIDERS: PCP Nurse Practitioner Family; Referring Provider Chiropractor; Visit Provider Chiropractor
DX: E11.9 Type 2 diabetes mellitus without complications (principal)
CPT/HCPCS: 36415; 80053; 81001